=== PATIENT | male | born 1990 | race Caucasian/White ===

== ENCOUNTER 2018-07-16 18:25 | Emergency (ER) | payer OTHER ==
[2018-07-16] MEDS: IBUPROFEN 600 MG TAB PO (18:55)
== END 2018-07-16 20:10 | disposition home or self-care (01) ==
LOC: M ED 18:25
DX: S13.4XXA Sprain of ligaments of cervical spine, initial encounter (principal); S80.11XA Contusion of right lower leg, initial encounter; V43.52XA Car driver injured in collision with other type car in traffic accident, initial encounter; Y92.410 Unspecified street and highway as the place of occurrence of the external cause; F17.200 Nicotine dependence, unspecified, uncomplicated
CPT/HCPCS: 73590

== ENCOUNTER 2018-11-10 12:08 | Emergency (ER) | payer OTHER, SELFPAY ==
[~2018-11-10 12:08] MED LIST: IBUP-1022 PO; SOMA350T PO
[2018-11-10 13:33] VITALS: BP 119/78
== END 2018-11-10 13:35 | disposition home or self-care (01) ==
LOC: M ED 12:08
DX: F43.20 Adjustment disorder, unspecified (principal)